=== PATIENT | female | born 1980 | race Two or more races ===

== ENCOUNTER 2017-12-14 12:19 | Emergency (ER) | payer SELFPAY ==
[~2017-12-14] VITALS: Ht 154.9 cm; Wt 78.0 kg
--- NOTE | 2017-12-14 12:40 | Emergency Room Report ---
History of Present Illness General Chief Complaint: Lower Extremity Injury Source: EMS Present Illness HPI 37-year-old female patient presents ER BIB ambulance complaining of right knee pain. reports she was walking and tripped on a dresser fell onto her right knee. Reports pain and swelling on right knee. Denies any loss consciousness. Denies fainting or hitting head. denies pain in left lower extremity or bilateral upper extremities, denies bleeding or open wounds. Denies other acute symptoms. Reports unable to walk secondary to pain. Denies fever, chest pain, shortness breath, abdominal pain. Allergies: Coded Allergies: No Known Allergies (Unverified , 12/14/17) Patient History Past Medical History: see triage record Last Menstrual Period: 04/2017 Now: No Reviewed Nursing Documentation: PMH: Agreed; PSxH: Agreed Nursing Documentation-PMH Hx Hypertension: Yes Hx Diabetes: Yes Review of Systems All Other Systems: negative except mentioned in HPI Physical Exam Vital Signs Date Time Temp Pulse Resp B/P (MAP) Pulse Ox O2 Delivery O2 Flow Rate FiO2 12/14/17 12:15 99.0 86 17 169/99 100 Room Air 99.0 Sp02 EP Interpretation: reviewed, normal General Appearance: well appearing, no apparent distress, alert, GCS 15, non- toxic Head: normocephalic, atraumatic Eyes: bilateral eye normal inspection, bilateral eye PERRL ENT: hearing grossly normal, normal pharynx, no angioedema, normal voice, uvula midline, moist mucus membranes Neck: full range of motion Respiratory: lungs clear, normal breath sounds, no rhonchi, no respiratory distress, no accessory muscle use, no wheezing, speaking full sentences Cardiovascular #1: regular rate, rhythm, no edema Musculoskeletal: back normal, digits/nails normal, gait/station normal, no calf tenderness, pelvis stable, decreased range of motion, swelling, other - No deformity, ecchymosis, able to wiggle toes, tender Neurologic: alert, oriented x3, responsive, motor strength/tone normal, sensory intact Psychiatric: mood/affect normal Medical Decision Making PA Attestation Dr. Page is my supervising Physician whom patient management has been discussed with. Diagnostic Impression: Primary Impression: Patella fracture ER Course Pt. presents to the ED c/o right knee pain. Ddx considered but are not limited to fracture, sprain, strain, contusion, dislocation. No erythema, no warmth to touch, no fever, nontoxic appearing, low suspicion for septic joint. Vital signs: are WNL, pt. is afebrile Ordered X-ray and pain medication. ER COURSE Provided with pain medication. An X-ray of the right knee shows 1. Midpatellar horizontal fracture with approximately 2 cm distraction of the fracture fragments. 2. Suprapatellar effusion. 3. Soft tissue swelling anterior to the knee. F/u with PCP, needs referral for surgical correction. Does not require acute intervention in ER at this time. Knee immobilizer was applied to the right knee was checked afterwards by me showing good alignment and support with distal neurovascular functioning intact. Crutches provided. Patient instructed on RICE method: rest, ice, compression, elevation. Patient instructed to be NWB. Followup with primary care provider. Discuss referral to ortho/pain management/ PT as needed. Discuss further imaging with MRI/CT as needed. discuss referral to the surgeon for surgical surgical correction. If unable to contact primary care provider and get referral, may follow-up with orthopedic urgent care or at [facility], patient provided with contact information for orthopedic urgent care. Provided with with x-ray results. Patient taken to car and wheelchair. Patient okay for discharge to home. Reports pain symptoms improved since arrival to ER. DISCHARGE: -Rx provided for [place] Blue drowsiness, do not take prior to drinking, driving, or operating heavy machinery. Patient may not drive with knee immobilizer on leg. CURES reviewed. At this time pt. is stable for d/c to home. Patient is resting comfortably, in no acute distress, nontoxic appearing, talking without difficulty. Will provide printed patient care instructions, and any necessary prescriptions. Patient instructed to follow with primary care provider in 3 - 5 days and to request further follow-up as needed. Care plan and follow up instructions have been discussed with the patient prior to discharge. Take medications as directed. Patient questions asked and answered. Patient reports understanding and agreement to treatment plan. ER precautions given, patient instructed to return to ER immediately for any new or worsening of symptoms. - Please note that this Emergency Department Report was dictated using [employer] technology software, occasionally this can lead to erroneous entry secondary to interpretation by the dictation equipment. Other X-Ray Diagnostic Results Other X-Ray Diagnostic Results : X-Ray ordered: Right knee # of Views/Limited Vs Complete: 3 View PA Xray: Interpretation reviewed, by supervising MD, and agrees with findings. Interpretation: other - Midpatellar horizontal fracture with approximately 2 cm distraction, suprapatellar effusion, soft tissue swelling Impression: No acute disease PA Scribe Text Juan Manuel Payan PA-C Last Vital Signs Date Time Temp Pulse Resp B/P (MAP) Pulse Ox O2 Delivery O2 Flow Rate FiO2 12/14/17 12:15 99.0 86 17 169/99 100 Room Air 99.0 Disposition: HOME, SELF-CARE Condition: Stable Scripts Hydrocodone Bit/Acetaminophen 5-325* (NORCO 5-325*) 1 Each Tablet 1 TAB ORAL Q6H PRN for For Pain, #10 TAB 0 Refills Prov: Taurus Payan 12/14/17 Patient Instructions: Patellar Fracture, Adult Additional Instructions: Patient instructed to follow up with primary care provider and discuss further referral to orthopedics for surgical correction. Patient instructed on RICE method: rest, ice, compression, elevation. Patient instructed to NWB, nonweight bearing. Take medications as directed. Patient questions asked and answered. ER precautions given, patient instructed to return to ER immediately for any new or worsening of symptoms. Taurus Payan Dec 14, 2017 12:40
[2017-12-14] MEDS ORDERED: Ketorolac 30mg Inj IM ONE (12:45)
[2017-12-14] MEDS ORDERED: Norco 5mg/325mg tab ORAL ONE (12:45)
--- NOTE | 2017-12-14 13:42 | Diagnostic Imaging Report ---
EXAM: XR Right Knee, 3 views CLINICAL HISTORY: PAIN TECHNIQUE: Three views of the right knee. COMPARISON: No relevant prior studies available. FINDINGS: Bones/joints: Midpatellar horizontal fracture with approximately 2 cm distraction of the fracture fragments. Suprapatellar effusion. Soft tissues: Soft tissue swelling anterior to the knee. IMPRESSION: 1. Midpatellar horizontal fracture with approximately 2 cm distraction of the fracture fragments. 2. Suprapatellar effusion. 3. Soft tissue swelling anterior to the knee.
[2017-12-14] MEDS ORDERED: NORCO 5-325 TA1 EACH ORAL (13:55)
[2017-12-14 15:14] VITALS: BP 169/99
== END 2017-12-14 15:16 | disposition home or self-care (01) ==
LOC: EDBD 12:19 → EMR 12:52
DX: S82.091A Other fracture of right patella, initial encounter for closed fracture (principal); W01.190A Fall on same level from slipping, tripping and stumbling with subsequent striking against furniture, initial encounter; Y93.89 Activity, other specified; I10 Essential (primary) hypertension; E11.9 Type 2 diabetes mellitus without complications
CPT/HCPCS: 73562; 96372; 99283; J1885